=== PATIENT | female | born 1975 | race Caucasian/White ===

== ENCOUNTER 2019-06-24 17:27 | Observation (INO) | payer MEDICARE, BC ==
[~2019-06-24] VITALS: Ht 160 cm; Wt 57.0 kg
[2019-06-24 18:03] LABS: BASOPHILS # (AUTO) 0.1 X10'3 (0-0.2); EOSINOPHILS # (AUTO) 0.3 X10'3 (0-0.9); EOSINOPHILS % (AUTO) 3.2 % (0-6); HEMATOCRIT 39.9 % (35.0-45.0); HEMOGLOBIN 13.5 g/dl (12.0-16.0); LYMPHOCYTES # (AUTO) 2.1 X10'3 (1.1-4.8); LYMPHOCYTES % (AUTO) 25.9 % (21-51); MEAN CORPUSCULAR HEMOGLOBIN 33.2 PG (27.0-31.0); MEAN CORPUSCULAR HGB CONC 33.9 g/dL (33.0-36.5); MEAN PLATELET VOLUME 9.1 FL (7.4-10.4); MONOCYTES # (AUTO) 0.6 X10'3 (0-0.9); MONOCYTES % (AUTO) 7.8 % (2-12); NEUTROPHILS # (AUTO) 5.1 X10'3 (1.8-7.7); NEUTROPHILS % (AUTO) 62.1 % (42-75); PLATELET COUNT 228 X10'3 (140-440); RED BLOOD COUNT 4.07 X10'6 (4.20-5.60); RED CELL DISTRIBUTION WIDTH 14.4 % (11.5-14.5); WHITE BLOOD COUNT 8.2 X10'3 (4.5-11.0)
[2019-06-24 18:09] LABS: ALANINE AMINOTRANSFERASE 21 U/L (12-78); ALBUMIN 3.7 G/DL (3.4-5.0); ALBUMIN/GLOBULIN RATIO 1.3 (1.1-1.5); ALKALINE PHOSPHATASE 58 IU/L (46-116); ANION GAP 7 (8-16); ASPARTATE AMINO TRANSFERASE 13 U/L (10-37); BILIRUBIN,TOTAL 0.3 MG/DL (0.1-1.0); BLOOD UREA NITROGEN 9 MG/DL (7-18); BUN/CREATININE RATIO 9.3 (6.6-38.0); CALCIUM 8.7 MG/DL (8.5-10.1); CHLORIDE 108 MMOL/L (99-107); CREATININE 0.97 MG/DL (0.40-0.90); ETHANOL < 0.010 GM/DL (0.0-0.010); GLUCOSE 99 MG/DL (70-104); MAGNESIUM 2.2 MG/DL (1.5-2.4); POTASSIUM 4.1 MMOL/L (3.5-5.1); SODIUM 143 MMOL/L (135-145); TOTAL CARBON DIOXIDE 28.4 MMOL/L (24-32); TOTAL PROTEIN 6.5 G/DL (6.4-8.2); eGFR 63 ML/MIN
[2019-06-24 18:10] LABS: HCG SERUM QL NEGATIVE
[2019-06-24 19:05] LABS: CLARITY,URINE SLIGHTLY CLOUDY (Clear); GLUCOSE, URINE NEGATIVE (Neg); KETONES,URINE NEGATIVE (Neg); LEUKOCYTE ESTERASE ,URINE TRACE (Neg); NITRITES, URINE NEGATIVE (Neg); OCCULT BLOOD,URINE LARGE (Neg); PH,URINE 8.5 (4.8-8.0); PROTEIN,URINE NEGATIVE (Neg); UROBILINOGEN,URINE 0.2 E.U/dL (0.2-1.0)
[2019-06-24 19:06] LABS: UA COLLECTION TYPE CLN CATCH MIDSTREAM
[2019-06-24 19:07] LABS: COLOR,URINE PINK (Yellow)
[2019-06-24 19:12] LABS: BACTERIA,URINE FEW /HPF (Neg); RBC,URINE TNTC /HPF (0-2); SQUAMOUS EPITHELIAL CELL,UR MODERATE /LPF (FEW); WBC,URINE 0-4 /HPF (0-4)
[2019-06-24 19:27] LABS: URINE AMPHETAMINE SCREEN NEGATIVE (Neg); URINE BARBITUATE SCREEN NEGATIVE (Neg); URINE BENZODIAZEPINES SCREEN NEGATIVE (Neg); URINE COCAINE SCREEN NEGATIVE (Neg); URINE METHADONE SCREEN NEGATIVE (Neg); URINE PHENCYCLIDINE SCREEN NEGATIVE (Neg)
--- NOTE | 2019-06-24 19:52 | NUR ---
SPOKE TO DR PEARSON: CT SCAN AND AND HE IS GOING TO ADMIT THE PATIENT DUE TO A POSITIVE RHOMBERG TEST..
[2019-06-24] MEDS ORDERED: aspirin 325mg tablet PO ONE (20:00)
[2019-06-24] MEDS ORDERED: naproxen sodium 220mg tablet PO SCH (20:00)
[2019-06-24 20:12] LABS: URINE CANNABINOID SCREEN POSITIVE (Neg); URINE OPIATE SCREEN NEGATIVE (Neg)
[2019-06-24] MEDS ORDERED: potassium CL 10mEq/100ml bag 100 ML IV PRN ×2 (21:15)
[2019-06-24] MEDS ORDERED: mag hydrox/Alum hydrox/simeth 30ml oral suspension PO PRN (21:15)
[2019-06-24] MEDS ORDERED: magnesium 2GM in 50ml NS 50 ML IV PRN (21:15)
[2019-06-24] MEDS ORDERED: ondansetron/PF 4mg/2ml inj IV PRN (21:15)
[2019-06-24] MEDS ORDERED: acetaminophen 325mg tablet PO PRN ×2 (21:15)
[2019-06-24] MEDS ORDERED: magnesium 4gm in 100ml NS 100 ML IV PRN (21:15)
[2019-06-24] MEDS ORDERED: magnesium Cl slow-release 64mg tablet PO PRN (21:15)
[2019-06-24] MEDS ORDERED: potassium Cl 20 mEq SR tablet PO PRN ×2 (21:15)
[2019-06-24] MEDS ORDERED: magnesium hydroxide 30ml (MOM) UD suspension PO PRN (21:15)
[2019-06-24 23:00] VITALS: BP 106/70
[2019-06-24] MEDS ORDERED: normal saline 1000ml 1,000 ML IV ONE (23:05)
--- NOTE | 2019-06-25 00:42 | NUR ---
Pt reports irregular BM due to meds. She states that normal bm pattern for her is every 4-7 days Addendum: 06/25/19 at 0047 by Dion ROBERTSON Amended: Links added.
[2019-06-25 02:00] VITALS: BP 95/62
--- NOTE | 2019-06-25 04:02 | NUR ---
REVIEWED AND AGREE WITH SRN ASSESSMENT.
[2019-06-25 06:00] VITALS: BP 88/57
--- NOTE | 2019-06-25 06:10 | NUR ---
Patient in room [facility]20. I have received report from Mercedes Ramsey and had the opportunity to ask questions and assume patient care.
--- NOTE | 2019-06-25 06:20 | NUR ---
Problems reprioritized. Patient report given, questions answered & plan of care reviewed with GAIL Wynne.
[2019-06-25 06:32] LABS: BASOPHILS % (AUTO) 0.3 % (0-1); EOSINOPHILS # (AUTO) 0.2 X10'3 (0-0.9); EOSINOPHILS % (AUTO) 3.6 % (0-6); HEMATOCRIT 38.3 % (35.0-45.0); HEMOGLOBIN 12.7 g/dl (12.0-16.0); LYMPHOCYTES # (AUTO) 1.8 X10'3 (1.1-4.8); LYMPHOCYTES % (AUTO) 27.6 % (21-51); MEAN CORPUSCULAR HEMOGLOBIN 32.8 PG (27.0-31.0); MEAN CORPUSCULAR HGB CONC 33.2 g/dL (33.0-36.5); MEAN CORPUSCULAR VOLUME 98.7 FL (78-98); MEAN PLATELET VOLUME 9.5 FL (7.4-10.4); MONOCYTES # (AUTO) 0.5 X10'3 (0-0.9); MONOCYTES % (AUTO) 7.7 % (2-12); NEUTROPHILS % (AUTO) 60.8 % (42-75); PLATELET COUNT 212 X10'3 (140-440); RED BLOOD COUNT 3.88 X10'6 (4.20-5.60); RED CELL DISTRIBUTION WIDTH 14.6 % (11.5-14.5); WHITE BLOOD COUNT 6.6 X10'3 (4.5-11.0)
[2019-06-25 06:39] LABS: ALBUMIN 3.1 G/DL (3.4-5.0); ANION GAP 5 (8-16); BLOOD UREA NITROGEN 11 MG/DL (7-18); BUN/CREATININE RATIO 13.4 (6.6-38.0); CALCIUM 8.9 MG/DL (8.5-10.1); CHLORIDE 111 MMOL/L (99-107); CHOL/HDL RATIO 2.2 (0.00-4.99); CHOLESTEROL 136 MG/DL (0-200); CREATININE 0.82 MG/DL (0.40-0.90); GLUCOSE 90 MG/DL (70-104); HDL CHOLESTEROL 62 MG/DL (35-60); LDL CHOLESTEROL 64 MG/DL (50-100); MAGNESIUM 2.3 MG/DL (1.5-2.4); POTASSIUM 3.9 MMOL/L (3.5-5.1); SODIUM 143 MMOL/L (135-145); TRIGLYCERIDES 93 MG/DL (20-135); eGFR 76 ML/MIN
--- NOTE | 2019-06-25 07:30 | NUR ---
Med rec had not yet been completed for pt. Spoke with pt's during assessment who advised he had given pt her morning medications at approximately 07:00. meds given were Klonopin, Trileptal, Micro, Rexulti and bromocriptine. Unknown dosages at this time. teacher drama currently speaking with pt and spouse to clarify dosages, home med list and completion of med rec. Pt's stated he gave pt the medications due to a sign he read in the ED that "home meds are not filled here". Pt's stated he believed the hospital was unable to provide pt's regular medications she normally takes at home and that she would be unable to receive them while here unless he gave them to her. Pt and spouse were provided education regarding policy of medication administration.
[2019-06-25] MEDS ORDERED: K and/or MAG REPLACEMENT MC SCH (08:00)
[2019-06-25] MEDS ORDERED: aspirin 325mg tablet, delayed-release (Ecotrin) PO SCH (08:00)
[2019-06-25] MEDS ORDERED: enoxaparin 40mg/0.4ml syringe SQ SCH (08:00)
[2019-06-25] MEDS ORDERED: METH10TA4 PO (08:23)
[2019-06-25] MEDS ORDERED: BREX2TAB PO (08:23)
[2019-06-25] MEDS ORDERED: ONDA8TAB6 PO (08:23)
[2019-06-25] MEDS ORDERED: LITH300T26 PO (08:23)
[2019-06-25] MEDS ORDERED: clonazepam PO (08:23)
[2019-06-25] MEDS ORDERED: PROP160C2 PO (08:23)
[2019-06-25] MEDS ORDERED: OXCA150T5 PO (08:23)
[2019-06-25] MEDS ORDERED: CARI6CAP PO (08:23)
[2019-06-25] MEDS ORDERED: BROM2.5T22 PO (08:23)
[2019-06-25] MEDS ORDERED: GABA300C PO (08:23)
[2019-06-25] MEDS ORDERED: QUET-1 PO (08:23)
--- NOTE | 2019-06-25 10:29 | NUR ---
Pt ate breakfast brought in to her by family from a fast food place. Addendum: 06/25/19 at 1030 by Sherrell Santos RN Amended: Links added.
[2019-06-25] MEDS ORDERED: non-formulary drug (Methylphenidate Hcl (Ritalin) 1 TAB) PO PRN (12:15)
[2019-06-25] MEDS ORDERED: non-formulary drug (Cariprazine Hydrochloride (Vraylar) 1 CAP) PO SCH (12:15)
[2019-06-25] MEDS ORDERED: ASPI-845 PO (12:37)
--- NOTE | 2019-06-25 12:44 | NUR ---
Reviewed discharge with pt. Pt uninterested in listening to any part of the discharge, currently arguing with spouse. Pt stated "the entire ordeal was a complete waste of time and money". Pt stated she was more interested in going to a Halloween green party and was not going to stay here. Pt pulled her IV out, took her ID band off and stood at the nurse's station until the discharge packet was printed. Pt did sign the form but asked where she could throw all of the paperwork away. Pt and spouse thanked staff and walked down stairs where the will drive her home. Pt is alert, oriented and does not have other complaints at this time. Pt is able to ambulate unassisted.
[2019-06-25] MEDS ORDERED: gadobutrol 10mmol/10ml inj. IV ONE (14:32)
[2019-06-25] MEDS ORDERED: lithium carbonate 300mg SR tablet (LithoBID) PO SCH (20:00)
[2019-06-25] MEDS ORDERED: quetiapine 100mg tablet PO SCH (20:00)
[2019-06-25] MEDS ORDERED: gabapentin 300mg capsule PO SCH (21:00)
[2019-06-25] MEDS ORDERED: non-formulary drug (Ondansetron Hcl (Zofran) 1 TAB) PO SCH (21:00)
[2019-06-26] MEDS ORDERED: BREXPIPRAZOLE PO SCH (08:00)
[2019-06-26] MEDS ORDERED: PROPRANOLOL HCL PO SCH (08:00)
[2019-06-26] MEDS ORDERED: CLONAZEPAM PO SCH (08:00)
[2019-06-26] MEDS ORDERED: oxcarbazepine 150mg tablet PO SCH (08:00)
== END 2019-06-25 12:45 | disposition home or self-care (01) ==
LOC: ER 17:28 → ORTHO 4S 23:33
PROVIDERS: ADMIT Hospitalist; ATTEND Hospitalist
DX: I63.9 Cerebral infarction, unspecified (principal); R42 Dizziness and giddiness; F41.9 Anxiety disorder, unspecified; F31.9 Bipolar disorder, unspecified; F20.9 Schizophrenia, unspecified; F17.200 Nicotine dependence, unspecified, uncomplicated; F12.90 Cannabis use, unspecified, uncomplicated; R47.81 Slurred speech
CPT/HCPCS: 36415; 70450; 70544; 70547; 70553; 80048; 80053; 80061; 80305; 80320; 81001; 82607; 83735; 84439; 84443; 84703; 85025; 87081; 87088; 93005; 93306; 96360; 96361; 96372; 97112; 97116; 97161; 99284; A9585; G0378; J1650